=== PATIENT | male | born 1990 | race African-American/Black ===

== ENCOUNTER 2017-03-02 09:58 | Inpatient (IN) | payer OTHER ==
[2017-03-02 10:43] VITALS: BMI 24.7
--- NOTE | 2017-03-02 13:12 | PN ---
[facility] Progress Note Note: Psychiatry Attending's note : Called at [facility] to evaluate this patient. Reason : bizarre behavior and paranoia. Case presented by YESSICA Holguin. Records reviewed by blog writer. Patient is interviewed. History as follows : 26 y/o AA male self-referred to [facility]. Issue : request for detox treatment. Admits to alcohol,cocaine and cannabis dependence. Co-morbidities : nicotine dependence + Schizoaffective Disorder. Maintained on Invega (dose not recalled by patient). Past history of psychiatric hospitalizations.Known to [facility]. Mr Clark is noted as calm,cooperative and appropriate.Conversant. Cognitively intact.Coherent and goal-directed.Decent level of personal hygiene. Patient admits to a recent exchange of words with a peer in the waiting area. " He was gazing at me.I did not feel comfortable and I made it known to the staff." No escalation.Mr Clark insists that his main purpose is to get detox treatment. " I am not looking for trouble.I will get staff's attention if any problem." Patient denies hallucinations.No evidence of acute psychosis. No suicidal or homicidal ideation,intent or plan. Being suspicious could be a chronic feature of patient's personality profile. Unremarkable mental status at time of this examination.
--- NOTE | 2017-03-02 13:48 | HP ---
CIWA Score - CIWA Score Nausea/Vomitin-No Nausea/No Vomiting Muscle Tremors: 4-Moderate,w/Arms Extend Anxiety: 5 Agitation: 4-Moderately Restless Paroxysmal Sweats: No Perspiration Orientation: 0-Oriented Tacttile Disturbances: 3-Moderate Itch/Numb/Burn Auditory Disturbances: 0-None Visual Disturbances: 0-None Headache: 0-None Present CIWA-Ar Total Score: 16 Admission ROS BHS - HPI Chief Complaint: WITHDRAWAL SX Allergies/Adverse Reactions: Allergies Allergy/AdvReac Type Severity Reaction Status Date / Time No Known Drug Allergies Allergy Verified 03/02/17 11:18 seafood Allergy Severe Itching Uncoded 03/02/17 11:19 History of Present Illness: 26 Y/O AA/MALE WITH A HX OF ALCOHOL,COCAINE AND MARIJUANA DEPENDENCE SEEKING DETOX TX. PT STATES " I CAME BY MYSELF AND I WANT TO GET BETTER'. Exam Limitations: No Limitations - Ebola screening Have you traveled outside of the country in the last 21 days: No Have you had contact with anyone from an Ebola affected area: No Have you been sick,other than usual withdrawal symptoms: No Do you have a fever: No - Review of Systems Constitutional: Loss of Appetite, Changes in sleep, Unintentional Wgt. Loss EENT: reports: Dental Problems (CAVITIES) Respiratory: reports: Cough Cardiac: reports: No Symptoms Reported GI: reports: Poor Appetite, Poor Fluid Intake : reports: No Symptoms Reported Musculoskeletal: reports: Back Pain, Muscle Pain Integumentary: reports: No Symptoms Reported Neuro: reports: Unsteady Gait (DUE TO ALCOHOL INTOXICATION) Endocrine: reports: No Symptoms Reported Hematology: reports: Anemia Psychiatric: reports: Orientated x3, Anxious, Depressed Other Systems: Reviewed and Negative Patient History - Patient Medical History Hx Anemia: No Hx Asthma: No Hx Chronic Obstructive Pulmonary Disease (COPD): No Hx Cancer: No Hx Cardiac Disorders: No Hx Congestive Heart Failure: No Hx Hypertension: No Hx Hypercholesterolemia: No Hx Pacemaker: No HX Cerebrovascular Accident: No Hx Seizures: No Hx Dementia: No Hx Diabetes: No Hx Gastrointestinal Disorders: No Hx Liver Disease: No Hx Genitourinary Disorders: No Hx Sexually Transmitted Disorders: No (DNIES) Hx Renal Disease (ESRD): No Hx Thyroid Disease: No Hx Human Immunodeficiency Virus (HIV): No (NEGATIVE HX) Hx Hepatitis C: No Hx Depression: Yes (ON INVEGA) Hx Suicide Attempt: No Hx Bipolar Disorder: Yes Hx Schizophrenia: No - Patient Surgical History Past Surgical History: Yes Hx Neurologic Surgery: No Hx Cataract Extraction: No Hx Cardiac Surgery: No Hx Lung Surgery: No Hx Breast Surgery: No Hx Breast Biopsy: No Hx Abdominal Surgery: No Hx Appendectomy: No Hx Cholecystectomy: No Hx Genitourinary Surgery: No Hx Orthopedic Surgery: Yes (fx, right hand) Anesthesia Reaction: No - PPD History Previous Implant?: Yes Documented Results: Negative w/proof Implanted On Prior [facility] Admission?: Yes Date: 05/19/14 PPD to be Administered?: Yes - Reproductive History Patient is a Female of Child Bearing Age (11 -55 yrs old): No (MALE) - Smoking Cessation Smoking history: Current every day smoker Have you smoked in the past 12 months: Yes Aproximately how many cigarettes per day: 3 Hx Chewing Tobacco Use: No Initiated information on smoking cessation: Yes 'Breaking Loose' booklet given: 03/02/17 - Substance & Tx. History Hx Alcohol Use: Yes (BEER) Hx Substance Use: Yes (CRACK/BEER) Substance Use Type: Alcohol, Cocaine, Marijuana Hx Substance Use Treatment: Yes - Substances Abused Crack Route: Smoking Frequency: Daily Amount used: $50 Age of first use: 22 Date of Last Use: 03/01/17 Alcohol-beer Route: Oral Frequency: Daily Amount used: 2-6 pks. Age of first use: 15 Date of Last Use: 03/01/17 Marijuana Route: Smoking Frequency: 1-2 times per week Amount used: $10 Age of first use: 14 Date of Last Use: 03/01/17 Family Disease History - Family Disease History Family History: Denies Admission Physical Exam S - Vital Signs Vital Signs: Vital Signs - 24 hr 03/02/17 10:42 Temperature 98.2 F Pulse Rate 85 Respiratory 20 Rate Blood Pressure 142/88 - Physical General Appearance: Yes: Moderate Distress, Irritable, Anxious HEENTM: Yes: EOMI, Normocephalic, BLAKE, Pharynx Normal Respiratory: Yes: Chest Non-Tender, Lungs Clear, Normal Breath Sounds, No Respiratory Distress Neck: Yes: No masses,lesions,Nodules, Supple, Trachea in good position Breast: Yes: Breast Exam Deferred Cardiology: Yes: Regular Rhythm, Regular Rate, S1, S2 Abdominal: Yes: Normal Bowel Sounds, Non Tender, Flat Back: Yes: Within Normal Limits Musculoskeletal: Yes: full range of Motion, Gait Steady Extremities: Yes: Normal Range of Motion, Non-Tender Neurological: Yes: pediatric physical therapy assistant II-XII NML intact, Fully Oriented, Alert Integumentary: Yes: Dry, Warm Lymphatic: Yes: Within Normal Limits - Diagnostic (1) Alcohol dependence with uncomplicated withdrawal Current Visit: Yes Status: Acute (2) Cocaine dependence, uncomplicated Current Visit: Yes Status: Acute (3) Cannabis dependence, uncomplicated Current Visit: Yes Status: Acute (4) History of depression Current Visit: Yes Status: Chronic Cleared for Admission S - Detox or Rehab Detox Regimen/Protocol: Librium S Breath Alcohol Content Breath Alcohol Content: 0 Urine Drug Screen - Results Drug Screen Negative: No Urine Drug Screen Results: THC-Marijuana, SARAHY-Cocaine
[2017-03-02] MEDS ORDERED: ACETAMINOPHEN 325 MG TABLET (FP) PO PRN (14:07)
[2017-03-02] MEDS ORDERED: LOPERAMIDE HCL 2 MG CAPSULE PO PRN (14:07)
[2017-03-02] MEDS ORDERED: IBUPROFEN 400 MG TABLET (FP) PO PRN (14:07)
[2017-03-02] MEDS ORDERED: chlordiazePOXIDE HCL 25 MG CAPSULE PO PRN (14:07)
[2017-03-02] MEDS ORDERED: MAGNESIUM HYDROX 2400MG/30ML ORAL SUSPENSION 30 ML CUP PO PRN (14:07)
[2017-03-02] MEDS ORDERED: P-EPHED 60MG/TRIPROLIDI 2.5MG TABLET PO PRN (14:07)
[2017-03-02] MEDS ORDERED: NICOTINE POLACRILEX 2 MG GUM BC PRN (14:07)
[2017-03-02] MEDS ORDERED: MAG HYDROX/AL HYDROX/SIMETH 30 ML UNIT-DOSE CUP PO PRN (14:07)
[2017-03-02] MEDS ORDERED: guaiFENesin/D-METHORPHAN HB 10 ML UNIT-DOSE CUPS PO PRN (14:07)
[2017-03-02] MEDS ORDERED: MAGNESIUM CITRATE 300 ML BOTTLE PO PRN (14:07)
[2017-03-02] MEDS ORDERED: MENTHOL/PHENOL 1 EACH UD MM PRN (14:07)
[2017-03-02] MEDS ORDERED: NICOTINE 14 MG/24 HOURS TOPICAL PATCH TD SCH (14:15)
[2017-03-02] MEDS ORDERED: chlordiazePOXIDE HCL 25 MG CAPSULE PO ONE (15:30)
[2017-03-02] MEDS ORDERED: chlordiazePOXIDE HCL 25 MG CAPSULE PO SCH (17:00)
[2017-03-02 17:35] VITALS: BP 130/80; PULSE 83; TEMP 99.1
--- NOTE | 2017-03-02 19:43 | PN ---
[facility] Progress Note Note: 26 years old male came to [facility] for alcohol detox, upon arrival to the unit, expose his private part to counselor, pull coffee on floor and to the security staff, aggressive toward peers and staff, uncontrollable behavior, patient transferred to [facility] for psychiatric evaluation.
[2017-03-02] MEDS ORDERED: THIAMINE HCL 100 MG TABLET (FP) PO SCH (22:00)
[2017-03-02 22:32] LABS: MCH 30.3 pg (25.7-33.7); MCHC 34.8 g/dl (32.0-35.9); MEAN CELL VOLUME 87.2 fl (80-96); MEAN PLT VOLUME 9.3 fl (7.5-11.1); PLATELET COUNT 275 K/MM3 (134-434); RDW 13.7 % (11.9-15.9); WHITE BLOOD COUNT 8.9 K/mm3 (4.0-10.0)
[2017-03-02 22:40] LABS: ALBUMIN 4.4 g/dl (3.4-5.0); ANION GAP 9 (8-16); CALCIUM 9.2 mg/dL (8.5-10.1); CO2 26 mmol/L (21-32); GLUCOSE,RANDOM 84 mg/dL (74-106)
[2017-03-02 22:44] LABS: ALK PHOS 72 U/L (45-117); BILIRUBIN,TOTAL 0.8 mg/dL (0.2-1.0); SGOT/AST 12 U/L (15-37); SGPT/ALT 15 U/L (12-78); TOT PROT 7.7 g/dl (6.4-8.2)
[2017-03-02 23:05] LABS: URINE APPEARANCE CLEAR; URINE BILIRUBIN NEGATIVE (NEGATIVE); URINE BLOOD NEGATIVE (NEGATIVE); URINE COLOR YELLOW; URINE GLUCOSE (UA) NEGATIVE (NEGATIVE); URINE KETONE NEGATIVE (NEGATIVE); URINE NITRITE NEGATIVE (NEGATIVE); URINE PROTEIN NEGATIVE (NEGATIVE)
[2017-03-03 02:49] LABS: HIV 1 & 2 AB NEGATIVE; HIV 1 AGp24 NEGATIVE
[2017-03-03] MEDS ORDERED: PRENATAL VITAMINS W/ FOLIC ACID TABLET (FP) PO SCH (10:00)
[2017-03-03 11:51] LABS: URINE LEUK ESTERASE Negative (NEGATIVE)
[2017-03-03] MEDS ORDERED: FLU VACCINE QUAD 60 MCG/0.5 ML (MDV 17-18) IM ONE (12:00)
--- NOTE | 2017-03-03 13:08 | EKG ---
Test Reason : Blood Pressure : / mmHG Vent. Rate : 076 BPM Atrial Rate : 076 BPM P-R Int : 146 ms QRS Dur : 092 ms QT Int : 364 ms P-R-T Axes : 036 069 065 degrees QTc Int : 409 ms NORMAL SINUS RHYTHM MINIMAL VOLTAGE CRITERIA FOR LVH, MAY BE NORMAL VARIANT BORDERLINE ECG NO PREVIOUS ECGS AVAILABLE Confirmed by WALT WILSON MD ([id number]) on 03/03/2017 1:08:06 PM Referred By: Confirmed By:WALT WILSON MD
[2017-03-03] MEDS ORDERED: chlordiazePOXIDE HCL 25 MG CAPSULE PO SCH (17:00)
[2017-03-04] MEDS ORDERED: chlordiazePOXIDE 5 MG CAPSULE PO SCH (17:00)
[2017-03-05] MEDS ORDERED: chlordiazePOXIDE HCL 10 MG CAPSULE PO SCH (17:00)
== END 2017-03-02 17:22 | DRG 897 ==
LOC: YASAS 09:58 → Y3N 15:07
PROVIDERS: ADMIT Internal Medicine; ATTEND Internal Medicine
PROC: HZ2ZZZZ Detoxification Services for Substance Abuse Treatment (ICD-10-PCS; principal; 2017-03-02)
DX: F19.230 Other psychoactive substance dependence with withdrawal, uncomplicated (principal); F14.20 Cocaine dependence, uncomplicated; F10.230 Alcohol dependence with withdrawal, uncomplicated; F12.20 Cannabis dependence, uncomplicated; F17.210 Nicotine dependence, cigarettes, uncomplicated; F91.8 Other conduct disorders; Z91.013 Allergy to seafood
CPT/HCPCS: 36415; 80053; 81003; 85027; 86593; 87389; 93005; 93010

== ENCOUNTER 2018-09-26 12:24 | Inpatient (IN) | payer OTHER ==
[2018-09-26 15:09] VITALS: BMI 28.7
--- NOTE | 2018-09-26 16:00 | HP ---
CIWA Score Nausea/Vomitin-Mild Nausea/No Vomiting Muscle Tremors: 2 Anxiety: 2 Agitation: 2 Paroxysmal Sweats: 2 Orientation: 0-Oriented Tacttile Disturbances: 1-Very Mild Itch/Numbness Auditory Disturbances: 1-Very Mild Visual Disturbances: 1-Very Mild Sensitivity Headache: 0-None Present CIWA-Ar Total Score: 12 - Admission Criteria OASAS Guidelines: Admission for Medically Managed Detox: Requires at least one of the followin. CIWA greater than 12 2. Seizures within the past 24 hours 3. Delirium tremens within the past 24 hours 4. Hallucinations within the past 24 hours 5. Acute intervention needed for co occurring medical disorder 6. Acute intervention needed for co occurring psychiatric disorder 7. Severe withdrawal that cannot be handled at a lower level of care (continued vomiting, continued diarrhea, abnormal vital signs) requiring intravenous medication and/or fluids 8. Admission ROS S - [facility] Chief Complaint: Withdrawal symptoms Allergies/Adverse Reactions: Allergies Allergy/AdvReac Type Severity Reaction Status Date / Time fish derived Allergy Severe Itching Verified 09/26/18 15:03 shellfish derived Allergy Severe Itching Verified 09/26/18 15:03 No Known Drug Allergies Allergy Verified 09/26/18 15:03 seafood Allergy Severe Itching Uncoded 09/26/18 15:03 History of Present Illness: 28 y.o. man with an extensive history of alcohol dependence is here seeking detox. He reports he was at [facility] approximately 3 weeks but left AMA. Longest period of sobriety has been 3 years but relapsed in 2013. - Ebola screening Have you traveled outside of the country in the last 21 days: No Have you had contact with anyone from an Ebola affected area: No Do you have a fever: No - Review of Systems Constitutional: Chills, Loss of Appetite, Unintentional Wgt. Loss EENT: reports: No Symptoms Reported Respiratory: reports: No Symptoms reported Cardiac: reports: No Symptoms Reported GI: reports: No Symptoms Reported : reports: No Symptoms Reported Musculoskeletal: reports: Back Pain Integumentary: reports: No Symptoms Reported Neuro: reports: No Symptoms reported, Seizure (H/o syncope) Endocrine: reports: No Symptoms Reported Hematology: reports: No Symptoms Reported Psychiatric: reports: Orientated x3 Other Systems: Reviewed and Negative Patient History - Patient Medical History Hx Anemia: No Hx Asthma: No Hx Chronic Obstructive Pulmonary Disease (COPD): No Hx Cancer: No Hx Cardiac Disorders: No Hx Congestive Heart Failure: No Hx Hypertension: No Hx Hypercholesterolemia: No Hx Pacemaker: No HX Cerebrovascular Accident: No Hx Seizures: No Hx Dementia: No Hx Diabetes: No Hx Gastrointestinal Disorders: No Hx Liver Disease: No Hx Genitourinary Disorders: No Hx Sexually Transmitted Disorders: No (Denies ) Hx Renal Disease (ESRD): No Hx Thyroid Disease: No Hx Human Immunodeficiency Virus (HIV): No (NEGATIVE HX) Hx Hepatitis C: No Hx Depression: Yes (ON INVEGA) Hx Suicide Attempt: No Hx Bipolar Disorder: Yes Hx Schizophrenia: No - Patient Surgical History Past Surgical History: Yes Hx Neurologic Surgery: No Hx Cataract Extraction: No Hx Cardiac Surgery: No Hx Lung Surgery: No Hx Breast Surgery: No Hx Breast Biopsy: No Hx Abdominal Surgery: No Hx Appendectomy: No Hx Cholecystectomy: No Hx Genitourinary Surgery: No Hx Section: No Hx Orthopedic Surgery: Yes (fx, right hand) Anesthesia Reaction: No - PPD History Previous Implant?: Yes Documented Results: Negative w/o proof Date: 05/19/14 PPD to be Administered?: Yes - Reproductive History Patient is a Female of Child Bearing Age (11 -55 yrs old): No - Smoking Cessation Smoking history: Current every day smoker Have you smoked in the past 12 months: Yes Aproximately how many cigarettes per day: 3 Hx Chewing Tobacco Use: No Initiated information on smoking cessation: Yes 'Breaking Loose' booklet given: 09/26/18 - Substance & Tx. History Hx Alcohol Use: Yes Hx Substance Use: Yes Substance Use Type: Alcohol, Cocaine, Marijuana Hx Substance Use Treatment: Yes (Detox [address] [facility] ) - Substances abused Alcohol Substance route: Oral Frequency: Daily Amount used: 6/6packs beer Age of first use: 14 Date of last use: 09/25/18 Marijuana/Hashish Substance route: Smoking Frequency: Daily Amount used: 5 blunts Age of first use: 13 Date of last use: 09/25/18 Crack Substance route: Smoking Frequency: Daily Amount used: $40 Age of first use: 23 Date of last use: 09/25/18 Family Disease History - Family Disease History Family History: Denies Admission Physical Exam BHS - Vital Signs Vital Signs: Vital Signs - 24 hr 09/26/18 14:59 Temperature 97.1 F L Pulse Rate 53 L Respiratory 16 Rate Blood Pressure 104/63 - Physical General Appearance: Yes: No Apparent Distress HEENTM: Yes: Hearing grossly Normal, Normocephalic, Normal Voice Respiratory: Yes: Lungs Clear, Normal Breath Sounds, No Respiratory Distress, No Accessory Muscle Use Neck: Yes: No masses,lesions,Nodules Breast: Yes: Breast Exam Deferred Cardiology: Yes: Regular Rhythm, Bradycardia Abdominal: Yes: Normal Bowel Sounds, Non Tender, Flat Genitourinary: Yes: Other (No complaints reported) Back: Yes: Normal Inspection Musculoskeletal: Yes: full range of Motion, Gait Steady, Pelvis Stable Extremities: Yes: Normal Capillary Refill, Normal Inspection, Normal Range of Motion, Non-Tender Neurological: Yes: Fully Oriented, Alert, Normal Mood/Affect, Normal Response Integumentary: Yes: Normal Color, Dry, Warm Lymphatic: Yes: Within Normal Limits - Diagnostic (1) Nicotine dependence Current Visit: Yes Status: Acute (2) Alcohol dependence with uncomplicated withdrawal Current Visit: Yes Status: Chronic (3) Cannabis dependence, uncomplicated Current Visit: Yes Status: Chronic (4) Cocaine dependence, uncomplicated Current Visit: Yes Status: Chronic Cleared for Admission S - Detox or Rehab [facility] Level of Care: Medically Managed Detox Regimen/Protocol: Librium Breathalyzer - Breathalyzer Breathalyzer: 0 Urine Drug Screen - Test Device Lot number: [id number] Expiration date: 06/01/20 - Control Is test valid?: Yes - Results Drug screen NEGATIVE: No Urine drug screen results: THC-Marijuana, SARAHY-Cocaine, BZO-Benzodiazepines Inpatient Rehab Admission - Rehab Decision to Admit Inpatient rehab admission?: No
[2018-09-26] MEDS ORDERED: MAG HYDROX/AL HYDROX/SIMETH 30 ML UNIT-DOSE CUP PO PRN (16:02)
[2018-09-26] MEDS ORDERED: MAGNESIUM HYDROX 2400MG/30ML ORAL SUSPENSION 30 ML CUP PO PRN (16:02)
[2018-09-26] MEDS ORDERED: BISMUTH SUBSALICYLATE 524 MG/30 ML UD PO PRN (16:02)
[2018-09-26] MEDS ORDERED: chlordiazePOXIDE HCL 10 MG CAPSULE PO PRN (16:02)
[2018-09-26] MEDS ORDERED: hydrOXYzine PAMOATE 25 MG CAPSULE (FP) PO PRN (16:02)
[2018-09-26] MEDS ORDERED: MENTHOL/PHENOL 1 EACH UD MM PRN (16:02)
[2018-09-26] MEDS ORDERED: METHOCARBAMOL 500 MG TABLET PO PRN (16:02)
[2018-09-26] MEDS ORDERED: ACETAMINOPHEN 325 MG TABLET (FP) PO PRN ×2 (16:02)
[2018-09-26] MEDS ORDERED: MAGNESIUM CITRATE 300 ML BOTTLE PO PRN (16:02)
[2018-09-26] MEDS: chlordiazePOXIDE HCL 25 MG CAPSULE PO SCH (22:12)
[2018-09-26] MEDS: THIAMINE HCL 100 MG TABLET (FP) PO SCH (22:13)
[2018-09-26] MEDS: MELATONIN 5 MG TABLETS PO PRN (22:13)
[2018-09-27] MEDS: chlordiazePOXIDE HCL 25 MG CAPSULE PO SCH ×2 (06:25→13:41)
--- NOTE | 2018-09-27 08:05 | EKG ---
Test Reason : Blood Pressure : / mmHG Vent. Rate : 045 BPM Atrial Rate : 045 BPM P-R Int : 174 ms QRS Dur : 100 ms QT Int : 424 ms P-R-T Axes : 065 067 052 degrees QTc Int : 366 ms SINUS BRADYCARDIA MINIMAL VOLTAGE CRITERIA FOR LVH, MAY BE NORMAL VARIANT EARLY REPOLARIZATION BORDERLINE ECG WHEN COMPARED WITH ECG OF 02-MAR-2017 18:27, VENT. RATE HAS DECREASED BY 31 BPM T WAVE AMPLITUDE HAS INCREASED IN ANTERIOR LEADS Confirmed by MICHELLE SHAIKH, NICOLASA ([id number]) on 09/27/2018 8:04:37 AM Referred By: Confirmed By:NICOLASA MARTINEZ MD
[2018-09-27] MEDS: PRENATAL VITAMINS W/ FOLIC ACID TABLET (FP) PO SCH (09:33)
[2018-09-27 10:00] LABS: HEMATOCRIT 39.4 % (35.4-49); HEMOGLOBIN 13.6 GM/dL (11.7-16.9); MCH 29.9 pg (25.7-33.7); MCHC 34.5 g/dl (32.0-35.9); MEAN CELL VOLUME 86.7 fl (80-96); MEAN PLT VOLUME 8.7 fl (7.5-11.1); PLATELET COUNT 247 K/MM3 (134-434); RBC 4.54 M/mm3 (4.00-5.60); RDW 14.6 % (11.9-15.9); WHITE BLOOD COUNT 4.6 K/mm3 (4.0-10.0)
[2018-09-27 10:07] LABS: ALBUMIN 3.6 g/dl (3.4-5.0); BILIRUBIN,TOTAL 0.7 mg/dL (0.2-1); BLOOD UREA NITROGEN 10.2 mg/dL (7-18); CALCIUM 9.2 mg/dL (8.5-10.1); CREATININE 0.9 mg/dL (0.55-1.3); POTASSIUM 4.6 mmol/L (3.5-5.1); TOT PROT 6.8 g/dl (6.4-8.2)
--- NOTE | 2018-09-27 15:24 | PN ---
S CIWA - CIWA Score Nausea/Vomitin-No Nausea/No Vomiting Muscle Tremors: None Anxiety: 3 Agitation: 2 Paroxysmal Sweats: 3 Orientation: 0-Oriented Tacttile Disturbances: 2-Mild Itch/Numbness/Burn Auditory Disturbances: 1-Very Mild Visual Disturbances: 2-Mild Sensitivity Headache: 0-None Present CIWA-Ar Total Score: 13 S Progress Note (SOAP) Subjective: Anxious, Sweating, Body Aches. Objective: PATIENT A & O X 3, OBSERVED AMBULATING ON UNIT UNASSISTED. IN NO ACUTE DISTRESS. 09/27/18 15:25 Vital Signs Temperature 97.0 F L 09/27/18 13:48 Pulse Rate 60 09/27/18 13:48 Respiratory Rate 18 09/27/18 13:48 Blood Pressure 104/65 09/27/18 13:48 O2 Sat by Pulse Oximetry (%) Laboratory Tests 09/27/18 09/27/18 09/27/18 07:00 07:00 07:00 WBC 4.6 RBC 4.54 Hgb 13.6 Hct 39.4 MCV 86.7 MCH 29.9 MCHC 34.5 RDW 14.6 Plt Count 247 MPV 8.7 Sodium 139 Potassium 4.6 Chloride 106 Carbon Dioxide 28 Anion Gap 5 L BUN 10.2 Creatinine 0.9 Est GFR (CKD-EPI)AfAm 132.37 Est GFR (CKD-EPI)NonAf 114.21 Random Glucose 76 Calcium 9.2 Total Bilirubin 0.7 AST 13 L ALT 19 Alkaline Phosphatase 53 Total Protein 6.8 Albumin 3.6 RPR Titer Nonreactive HIV 1&2 Antibody Screen HIV P24 Antigen 09/27/18 07:00 WBC RBC Hgb Hct MCV MCH MCHC RDW Plt Count MPV Sodium Potassium Chloride Carbon Dioxide Anion Gap BUN Creatinine Est GFR (CKD-EPI)AfAm Est GFR (CKD-EPI)NonAf Random Glucose Calcium Total Bilirubin AST ALT Alkaline Phosphatase Total Protein Albumin RPR Titer HIV 1&2 Antibody Screen Negative HIV P24 Antigen Negative LABS NOTED. HCV AB RESULT PENDING. 09/27/18 15:26 Assessment: 09/27/18 15:25 WITHDRAWAL SYMPTOMS. Plan: CONTINUE DETOX.
[2018-09-27] MEDS: chlordiazePOXIDE 5 MG CAPSULE PO SCH (21:21)
[2018-09-27] MEDS: THIAMINE HCL 100 MG TABLET (FP) PO SCH (21:21)
[2018-09-27] MEDS: IBUPROFEN 600 MG TABLET (FP) PO PRN (21:22)
[2018-09-27] MEDS: MELATONIN 5 MG TABLETS PO PRN (21:22)
[2018-09-28] MEDS: chlordiazePOXIDE 5 MG CAPSULE PO SCH ×2 (06:14→12:36)
[2018-09-28] MEDS: PRENATAL VITAMINS W/ FOLIC ACID TABLET (FP) PO SCH (11:00)
--- NOTE | 2018-09-28 14:03 | PN ---
S CIWA - CIWA Score Nausea/Vomitin Muscle Tremors: 2 Anxiety: 2 Agitation: 2 Paroxysmal Sweats: 1-Minimal Palms Moist Orientation: 0-Oriented Tacttile Disturbances: 1-Very Mild Itch/Numbness Auditory Disturbances: 1-Very Mild Visual Disturbances: 0-None Headache: 2-Mild CIWA-Ar Total Score: 13 S Progress Note (SOAP) Subjective: alert,irritable,anxious,interrupted sleep,tremor Objective: 09/28/18 13:59 Vital Signs Temperature 96.5 F L 09/28/18 13:05 Pulse Rate 61 09/28/18 13:05 Respiratory Rate 18 09/28/18 13:05 Blood Pressure 107/66 09/28/18 13:05 O2 Sat by Pulse Oximetry (%) 09/28/18 14:02 Laboratory Last Values WBC 4.6 K/mm3 (4.0-10.0) 09/27/18 07:00 RBC 4.54 M/mm3 (4.00-5.60) 09/27/18 07:00 Hgb 13.6 GM/dL (11.7-16.9) 09/27/18 07:00 Hct 39.4 % (35.4-49) 09/27/18 07:00 MCV 86.7 fl (80-96) 09/27/18 07:00 MCH 29.9 pg (25.7-33.7) 09/27/18 07:00 MCHC 34.5 g/dl (32.0-35.9) 09/27/18 07:00 RDW 14.6 % (11.9-15.9) 09/27/18 07:00 Plt Count 247 K/MM3 (134-434) 09/27/18 07:00 MPV 8.7 fl (7.5-11.1) 09/27/18 07:00 Sodium 139 mmol/L (136-145) 09/27/18 07:00 Potassium 4.6 mmol/L (3.5-5.1) 09/27/18 07:00 Chloride 106 mmol/L (98-107) 09/27/18 07:00 Carbon Dioxide 28 mmol/L (21-32) 09/27/18 07:00 Anion Gap 5 MMOL/L (8-16) L 09/27/18 07:00 BUN 10.2 mg/dL (7-18) 09/27/18 07:00 Creatinine 0.9 mg/dL (0.55-1.3) 09/27/18 07:00 Est GFR (CKD-EPI)AfAm 132.37 09/27/18 07:00 Est GFR (CKD-EPI)NonAf 114.21 09/27/18 07:00 Random Glucose 76 mg/dL (74-106) 09/27/18 07:00 Calcium 9.2 mg/dL (8.5-10.1) 09/27/18 07:00 Total Bilirubin 0.7 mg/dL (0.2-1) 09/27/18 07:00 AST 13 U/L (15-37) L 09/27/18 07:00 ALT 19 U/L (13-61) 09/27/18 07:00 Alkaline Phosphatase 53 U/L (45-117) 09/27/18 07:00 Total Protein 6.8 g/dl (6.4-8.2) 09/27/18 07:00 Albumin 3.6 g/dl (3.4-5.0) 09/27/18 07:00 RPR Titer Nonreactive (NONREACTIVE) 09/27/18 07:00 Hep C Ab Diagnostic <0.1 s/co ratio (0.0-0.9) 09/27/18 07:00 HIV 1&2 Antibody Screen Negative 09/27/18 07:00 HIV P24 Antigen Negative 09/27/18 07:00 Assessment: 09/28/18 14:03 withdrawal symptom Plan: continue detox
[2018-09-28] MEDS ORDERED: chlordiazePOXIDE HCL 10 MG CAPSULE PO PRN (21:00)
[2018-09-28] MEDS: THIAMINE HCL 100 MG TABLET (FP) PO SCH (22:02)
[2018-09-28] MEDS: chlordiazePOXIDE HCL 10 MG CAPSULE PO SCH (22:02)
[2018-09-28] MEDS: MELATONIN 5 MG TABLETS PO PRN (22:03)
[2018-09-28] MEDS: IBUPROFEN 600 MG TABLET (FP) PO PRN (22:03)
[2018-09-29] MEDS: chlordiazePOXIDE HCL 10 MG CAPSULE PO SCH ×2 (06:06→15:15)
--- NOTE | 2018-09-29 09:27 | PN ---
S CIWA - CIWA Score Nausea/Vomitin-No Nausea/No Vomiting Muscle Tremors: None Anxiety: 1-Mildly Anxious Agitation: 1-Slight > Activity Paroxysmal Sweats: No Perspiration Orientation: 0-Oriented Tacttile Disturbances: 0-None Auditory Disturbances: 0-None Visual Disturbances: 0-None Headache: 1-Very Mild CIWA-Ar Total Score: 3 BHS Progress Note (SOAP) Subjective: alert,no complaint Objective: 09/29/18 09:26 Vital Signs Temperature 97.4 F L 09/29/18 06:48 Pulse Rate 51 L 09/29/18 06:48 Respiratory Rate 18 09/29/18 06:48 Blood Pressure 102/57 L 09/29/18 06:48 O2 Sat by Pulse Oximetry (%) Assessment: 09/29/18 09:26 detox completed,no withdrawal symptom Plan: [id number] today,follow up with [facility] as arrangement
--- NOTE | 2018-09-29 09:29 | DS ---
[facility] Detox Discharge Summary Admission Date: 09/26/18 Discharge Date: 09/29/18 - History Present History: Alcohol Dependence, Cannabis Dependence, Cocaine Dependence Additional Comments: follow up with [facility] as arrangement Pertinent Past History: nicotine dependence - Physical Exam Results Vital Signs: Vital Signs Temperature 97.4 F L 09/29/18 06:48 Pulse Rate 51 L 09/29/18 06:48 Respiratory Rate 18 09/29/18 06:48 Blood Pressure 102/57 L 09/29/18 06:48 O2 Sat by Pulse Oximetry (%) Pertinent Admission Physical Exam Findings: withdrawal signs and symptom - Treatment Hospital Course: Detox Protocol Followed, Detoxed Safely, Responded well, Discharged Condition Good, Rehab Referral Accepted Patient has Accepted a Rehab Referral to: [facility] - Medication Discharge Medications: Ambulatory Orders NK [No Known Home Medication] 09/26/18 - AMA Did Patient Leave Against Medical Advice: No
[2018-09-29] MEDS: PRENATAL VITAMINS W/ FOLIC ACID TABLET (FP) PO SCH (10:41)
--- NOTE | 2018-09-29 12:20 | PN ---
S Progress Note Note: patient is stable to be transferred to rehab for further level of care
--- NOTE | 2018-09-29 13:31 | HP ---
PRIYA SHAIKH Rehab Assess/Revision - Vital signs Vital Signs: Vital Signs Period Temp Pulse Resp BP Sys/Shields Pulse Ox Last 24 Hr 96.5 F-98.0 F 48-61 18-18 102-122/57-74 Inpatient Rehab Admission - Rehab Decision to Admit Inpatient rehab admission?: Yes - Initial Determination Are CD services needed?: Yes Free of communicable disease: Yes Not in need of hospitalization: Yes - Rehab Admission Criteria Previous failed treatment: Yes Poor recovery environment: Yes Comorbidities: Yes Lacks judgement: No Patient is meeting Inpatient Rehab admission criteria:: Yes
[2018-09-29] MEDS: MELATONIN 5 MG TABLETS PO PRN (21:29)
[2018-09-29] MEDS: THIAMINE HCL 100 MG TABLET (FP) PO SCH (21:29)
[2018-09-30] MEDS: PRENATAL VITAMINS W/ FOLIC ACID TABLET (FP) PO SCH (09:28)
[2018-09-30] MEDS: MELATONIN 5 MG TABLETS PO PRN (21:38)
[2018-09-30] MEDS: THIAMINE HCL 100 MG TABLET (FP) PO SCH (21:38)
[2018-10-01] MEDS: PRENATAL VITAMINS W/ FOLIC ACID TABLET (FP) PO SCH (10:53)
[2018-10-01] MEDS: THIAMINE HCL 100 MG TABLET (FP) PO SCH (21:55)
[2018-10-01] MEDS: MELATONIN 5 MG TABLETS PO PRN (21:55)
[2018-10-02 06:49] VITALS: BP 130/71; PULSE 62; TEMP 97.7
[2018-10-02] MEDS: PRENATAL VITAMINS W/ FOLIC ACID TABLET (FP) PO SCH (10:02)
[2018-10-02] MEDS ORDERED: PT OWN MED DRAWER 7, Y5N ONE (10:40)
[2018-10-02] MEDS: THIAMINE HCL 100 MG TABLET (FP) PO SCH (21:25)
[2018-10-02] MEDS: MELATONIN 5 MG TABLETS PO PRN (21:25)
[2018-10-03] MEDS: PRENATAL VITAMINS W/ FOLIC ACID TABLET (FP) PO SCH (10:17)
--- NOTE | 2018-10-03 12:04 | PN ---
S Progress Note (SOAP) Subjective: Patient states that he is leaving tomorrow AMA. Patient states that he is not prepared to stay and has family issues. Objective: A+O x3, no neurological deficits noted, PERRLA, heart rate regular, lungs clear , abd soft, non-tender, non-distended, +BS. Skin clear. 10/03/18 12:02 CBC, BMP 09/27/18 07:00 09/27/18 07:00 Vital Signs (72 hours) 10/01/18 10/01/18 10/01/18 00:30 03:30 06:50 Temperature 98.0 F Pulse Rate 76 Respiratory 18 18 18 Rate Blood Pressure 152/84 10/02/18 10/02/18 10/02/18 00:30 03:30 06:49 Temperature 97.7 F Pulse Rate 62 Respiratory 18 18 18 Rate Blood Pressure 130/71 10/03/18 10/03/18 00:30 03:30 Temperature Pulse Rate Respiratory 20 18 Rate Blood Pressure 10/03/18 12:02 10/03/18 12:10 10/03/18 12:16 Assessment: Medically stable for discharge Discharge Dx; ETOH dependence Cannabis dependence Cocaine dependence. 10/03/18 12:17 10/03/18 12:17 Plan: Discharge Plan: Patient is leaving AMA. Patient will seek residential treatment on his own and will consult with his counselor to determine the best choices. Patient does not have regular primary care provider. Strongly encouraged to seek on-going medical care. Does not take any prescribed medications while in the community.
== END 2018-10-03 15:09 | disposition left against medical advice (07) | DRG 894 ==
LOC: YASAS 12:24 → Y3N 16:44 → Y3W 09-29 12:35
PROVIDERS: ADMIT Surgery; ATTEND Psychiatry & Neurology Psychiatry
PROC: HZ2ZZZZ Detoxification Services for Substance Abuse Treatment (ICD-10-PCS; principal; 2018-09-26)
PROC: HZ42ZZZ Group Counseling for Substance Abuse Treatment, Cognitive-Behavioral (ICD-10-PCS; 2018-09-29)
DX: F10.230 Alcohol dependence with withdrawal, uncomplicated (principal); F14.20 Cocaine dependence, uncomplicated; F12.20 Cannabis dependence, uncomplicated; F17.210 Nicotine dependence, cigarettes, uncomplicated; R00.1 Bradycardia, unspecified; Z91.013 Allergy to seafood
CPT/HCPCS: 36415; 80053; 85027; 86593; 86803; 87389; 93005; 93010

== ENCOUNTER 2019-04-20 14:00 | Inpatient (IN) | payer OTHER ==
[2019-04-20 17:01] VITALS: BMI 29.6
--- NOTE | 2019-04-20 20:08 | HP ---
"CIWA Score - Admission Criteria [facility]ASAS Guidelines: Admission for Medically Managed Detox: Requires at least one of the followin. CIWA greater than 12 2. Seizures within the past 24 hours 3. Delirium tremens within the past 24 hours 4. Hallucinations within the past 24 hours 5. Acute intervention needed for co occurring medical disorder 6. Acute intervention needed for co occurring psychiatric disorder 7. Severe withdrawal that cannot be handled at a lower level of care (continued vomiting, continued diarrhea, abnormal vital signs) requiring intravenous medication and/or fluids 8. Admitting History and Physical - Smoking History Smoking history: Current every day smoker Have you smoked in the past 12 months: Yes Aproximately how many cigarettes per day: 3 - Alcohol/Substance Use Hx Alcohol Use: Yes Admission ROS S - HPI Chief Complaint: States here for rehab to avoid further relapse. Allergies/Adverse Reactions: Allergies Allergy/AdvReac Type Severity Reaction Status Date / Time fish derived Allergy Severe Itching Verified 04/20/19 16:45 shellfish derived Allergy Severe Itching Verified 04/20/19 16:45 No Known Drug Allergies Allergy Verified 04/20/19 16:45 seafood Allergy Severe Itching Uncoded 04/20/19 16:45 History of Present Illness: 28 yo presents seeking rehab. CIARAN: 0.0 UTox: Neg Hx: Crack/cocaine/Marijuana/Alcohol use - states was detoxed from alcohol and then went to a rehab. Alcohol use began at age 14. Relapsed this week. Currently drinking 1 pint daily x past 3-4 days. Last drink was 04/19/18 in am.. Cocaine use began at age 22. last used 1 month ago. Denies Nicotine use. States stopped Denies hx seizures, overdoses, or blackouts. PMHx: Denies MHHx: Depression/Bipolar. States does not see a MH Provider. States taking MH meds. States gets meds from the emergency room. Denies thoughts of harming self or others. SHx: Domiciled. Unemployed. Denies legal issues. Search Terms: Chase Clark, 1990 Search Date: 04/20/2019 08:08:04 PM The Drug Utilization Report below displays all of the controlled substance prescriptions, if any, that your patient has filled in the last twelve months. The information displayed on this report is compiled from pharmacy submissions to the Department, and accurately reflects the information as submitted by the pharmacies. This report was requested by: Amanda Alas | Reference #: [id number] There are no results for the search terms that you entered. Exam Limitations: No Limitations - Ebola screening Have you traveled outside of the country in the last 21 days: No Have you had contact with anyone from an Ebola affected area: No Have you been sick,other than usual withdrawal symptoms: No Do you have a fever: No - Review of Systems Constitutional: Weight Stable EENT: reports: No Symptoms Reported Respiratory: reports: No Symptoms reported Cardiac: reports: No Symptoms Reported GI: reports: No Symptoms Reported : reports: No Symptoms Reported Musculoskeletal: reports: No Symptoms Reported Integumentary: reports: No Symptoms Reported Neuro: reports: No Symptoms reported Endocrine: reports: No Symptoms Reported Hematology: reports: No Symptoms Reported Psychiatric: reports: Judgement Intact, Orientated x3 Patient History - Patient Medical History Hx Anemia: No Hx Asthma: No Hx Chronic Obstructive Pulmonary Disease (COPD): No Hx Cancer: No Hx Cardiac Disorders: No Hx Congestive Heart Failure: No Hx Hypertension: No Hx Hypercholesterolemia: No Hx Pacemaker: No HX Cerebrovascular Accident: No Hx Seizures: No Hx Dementia: No Hx Diabetes: No Hx Gastrointestinal Disorders: No Hx Liver Disease: No Hx Genitourinary Disorders: No Hx Sexually Transmitted Disorders: No Hx Renal Disease (ESRD): No Hx Thyroid Disease: No Hx Human Immunodeficiency Virus (HIV): No (NEGATIVE HX) Hx Hepatitis C: No Hx Depression: Yes Hx Suicide Attempt: No Hx Bipolar Disorder: Yes Hx Schizophrenia: No - Patient Surgical History Past Surgical History: Yes Hx Neurologic Surgery: No Hx Cataract Extraction: No Hx Cardiac Surgery: No Hx Lung Surgery: No Hx Breast Surgery: No Hx Breast Biopsy: No Hx Abdominal Surgery: No Hx Appendectomy: No Hx Cholecystectomy: No Hx Genitourinary Surgery: No Hx Section: No Hx Orthopedic Surgery: Yes (fx, right hand) Anesthesia Reaction: No - PPD History Previous Implant?: Yes Documented Results: Negative w/proof Implanted On Prior [facility] Admission?: Yes Date: 09/26/18 Results: 0 mm PPD to be Administered?: No - Smoking Cessation Smoking history: Former smoker Have you smoked in the past 12 months: Yes Hx Chewing Tobacco Use: No Initiated information on smoking cessation: Yes 'Breaking Loose' booklet given: 04/20/19 - Substance & Tx. History Hx Alcohol Use: Yes Hx Substance Use: Yes Substance Use Type: Alcohol, Cocaine, Marijuana Hx Substance Use Treatment: Yes (detox, rehab) - Substances abused Alcohol Substance route: Oral Frequency: Daily Amount used: 1 pint of gin Age of first use: 15 Date of last use: 04/19/19 Cocaine Substance route: Smoking Frequency: Daily Amount used: 50 dollars Age of first use: 22 Date of last use: 04/19/19 Marijuana/Hashish Substance route: Smoking Frequency: Daily Amount used: 50 dollars Age of first use: 14 Date of last use: 04/20/[address] [facility] - Vital Signs Vital Signs: Vital Signs - 24 hr 04/20/19 04/20/19 16:44 19:44 Temperature 98.5 F 98.5 F Pulse Rate 74 74 Respiratory 20 20 Rate Blood Pressure 118/69 118/69 - Physical General Appearance: Yes: Nourished HEENTM: Yes: EOMI, Hearing grossly Normal, Normocephalic, Normal Voice, BLAKE Respiratory: Yes: Lungs Clear (Pulse Ox = 97 %), Normal Breath Sounds, No Respiratory Distress Neck: Yes: No masses,lesions,Nodules, Supple Breast: Yes: Breast Exam Deferred Cardiology: Yes: Regular Rhythm, S1, S2, Bradycardia (HR: 58) Abdominal: Yes: Non Tender, Flat, Soft, Increased Bowel Sounds Genitourinary: Yes: Within Normal Limits Back: Yes: Normal Inspection Musculoskeletal: Yes: full range of Motion, Gait Steady Extremities: Yes: Normal Capillary Refill (Peipheral pulses +) Neurological: Yes: back closer II-XII NML intact, Fully Oriented, Alert, Motor Strength 5/5, Other (FLAT AFFECT) Integumentary: Yes: Normal Color, Dry, Warm Lymphatic: Yes: Within Normal Limits - Diagnostic (1) Cannabis dependence in early, early partial, sustained full, or sustained partial remission Current Visit: Yes Status: Acute (2) Cocaine dependence in early, early partial, sustained full, or sustained partial remission Current Visit: Yes Status: Acute (3) Alcohol dependence, in remission Current Visit: Yes Status: Acute Cleared for Admission [facility] - Detox or Rehab Claeared for Rehab Admission: Yes Breathalyzer - Breathalyzer Breathalyzer: 0 Urine Drug Screen - Test Device Lot number: [id number] Expiration date: 11/01/20 - Control Is test valid?: Yes - Results Drug screen NEGATIVE: Yes Urine drug screen results: THC-Marijuana, SARAHY-Cocaine, BZO-Benzodiazepines Inpatient Rehab Admission - Rehab Decision to Admit Inpatient rehab admission?: Yes - Initial Determination Are CD services needed?: Yes Free of communicable disease: Yes Not in need of hospitalization: Yes - Rehab Admission Criteria Previous failed treatment: Yes Poor recovery environment: Yes Comorbidities: Yes Lacks judgement: No Patient is meeting Inpatient Rehab admission criteria:: Yes"
[2019-04-20] MEDS ORDERED: MAGNESIUM HYDROX 2400MG/30ML ORAL SUSPENSION 30 ML CUP PO PRN (20:29)
[2019-04-20] MEDS ORDERED: MENTHOL/PHENOL 1 EACH UD MM PRN (20:29)
[2019-04-20] MEDS ORDERED: MAG HYDROX/AL HYDROX/SIMETH 30 ML UNIT-DOSE CUP PO PRN (20:29)
[2019-04-20] MEDS ORDERED: P-EPHED 60MG/TRIPROLIDI 2.5MG TABLET PO PRN (20:29)
[2019-04-20] MEDS ORDERED: ACETAMINOPHEN 325 MG TABLET (FP) PO PRN (20:29)
[2019-04-20] MEDS ORDERED: MAGNESIUM CITRATE 300 ML BOTTLE PO PRN (20:29)
[2019-04-20] MEDS ORDERED: guaiFENesin 200 MG/10 ML 10 ML UNIT-DOSE CUPS PO PRN (20:29)
[2019-04-20] MEDS ORDERED: LOPERAMIDE HCL 2 MG CAPSULE PO PRN (20:29)
[2019-04-20] MEDS ORDERED: IBUPROFEN 400 MG TABLET (FP) PO PRN (20:29)
[2019-04-20] MEDS ORDERED: MELATONIN 5 MG TABLETS PO PRN (22:00)
[2019-04-20] MEDS: THIAMINE HCL 100 MG TABLET (FP) PO SCH (22:01)
[2019-04-21] MEDS: PRENATAL VITAMINS W/ FOLIC ACID TABLET (FP) PO SCH (10:14)
[2019-04-21 11:36] LABS: HEMATOCRIT 37.9 % (35.4-49); HEMOGLOBIN 13.1 GM/dL (11.7-16.9); MCH 29.8 pg (25.7-33.7); MCHC 34.5 g/dl (32.0-35.9); MEAN CELL VOLUME 86.2 fl (80-96); PLATELET COUNT 225 K/MM3 (134-434); RBC 4.39 M/mm3 (4.00-5.60); RDW 13.9 % (11.9-15.9); WHITE BLOOD COUNT 4.2 K/mm3 (4.0-10.0)
[2019-04-21 11:55] LABS: ALBUMIN 3.7 g/dl (3.4-5.0); BILIRUBIN,TOTAL 0.5 mg/dL (0.2-1); BLOOD UREA NITROGEN 11.8 mg/dL (7-18); CALCIUM 8.8 mg/dL (8.5-10.1); CREATININE 0.9 mg/dL (0.55-1.3); POTASSIUM 4.1 mmol/L (3.5-5.1); TOT PROT 6.8 g/dl (6.4-8.2)
--- NOTE | 2019-04-21 13:16 | EKG ---
Test Reason : Blood Pressure : / mmHG Vent. Rate : 054 BPM Atrial Rate : 054 BPM P-R Int : 160 ms QRS Dur : 084 ms QT Int : 382 ms P-R-T Axes : 049 069 047 degrees QTc Int : 362 ms SINUS BRADYCARDIA OTHERWISE NORMAL ECG WHEN COMPARED WITH ECG OF 26-SEP-2018 16:36, NO SIGNIFICANT CHANGE WAS FOUND Confirmed by WALT WILSON MD ([id number]) on 04/21/2019 1:16:42 PM Referred By: Dami Win Confirmed By:WALT WILSON MD
[2019-04-21] MEDS: THIAMINE HCL 100 MG TABLET (FP) PO SCH (22:03)
[2019-04-22] MEDS: PRENATAL VITAMINS W/ FOLIC ACID TABLET (FP) PO SCH (10:07)
[2019-04-22] MEDS: THIAMINE HCL 100 MG TABLET (FP) PO SCH (21:45)
[2019-04-23] MEDS: PRENATAL VITAMINS W/ FOLIC ACID TABLET (FP) PO SCH (10:14)
--- NOTE | 2019-04-23 11:01 | PN ---
[facility] Progress Note Note: Pt is a 29 y/o male with a hx of CODY-alcohol,cocaine,marijuana admitted through [facility] . As per H/P pt has a hx of Bipolar Disorder(no meds). Pt reports he has no PCP and goes to the ER when needing medical care. Pt is unwilling to have giving clear information about medical management when asked. However, Psych consult has been ordered and Valproic Acid on admission--result low as below. Vital Signs - 24 hr 04/23/19 03:30 Respiratory 18 Rate Laboratory Tests 04/21/19 04/21/19 04/21/19 07:30 07:30 07:30 WBC 4.2 RBC 4.39 Hgb 13.1 Hct 37.9 MCV 86.2 MCH 29.8 MCHC 34.5 RDW 13.9 Plt Count 225 MPV 9.0 Sodium 142 Potassium 4.1 Chloride 110 H Carbon Dioxide 27 Anion Gap 5 L BUN 11.8 Creatinine 0.9 Est GFR (CKD-EPI)AfAm 132.37 Est GFR (CKD-EPI)NonAf 114.21 Random Glucose 81 Calcium 8.8 Total Bilirubin 0.5 AST 13 L ALT 16 Alkaline Phosphatase 60 Total Protein 6.8 Albumin 3.7 Valproic Acid 6.4 L RPR Titer 04/21/19 07:30 WBC RBC Hgb Hct MCV MCH MCHC RDW Plt Count MPV Sodium Potassium Chloride Carbon Dioxide Anion Gap BUN Creatinine Est GFR (CKD-EPI)AfAm Est GFR (CKD-EPI)NonAf Random Glucose Calcium Total Bilirubin AST ALT Alkaline Phosphatase Total Protein Albumin Valproic Acid RPR Titer Nonreactive Alert o x 3 nad oob ambulating with steady gait. A/P new rehab pt Maintain safety labs reviewed with pt pt's inappropriate behavior(confrontational) d/w counselors Ms Luis Antonio Holder and Ms Nakia Ballard as well as Nurses-Kelly Lau and Kelly. D/w psych consult- Buster Ramesh, beading installer and he will see patient. Pt may be teamed with security presence to address behavior and encourage positive behavior to maximize treatment benefit if continues to be a problem. Cont rehab. Addendum:Pt was very argumentative and confrontational when asked if he has a primary care provider. Pt cross- questioning provider stating where do you think I go? Answer me? Pt continued to respond inappropriately to provider nonstop while provider ignored his efforts to escalate argument. Provider explained to patient that this new patient encounter is meant to gather information that we may not have gathered on admission for his medical care and discharge planning. Pt continued to be verbally insulting on the hallways after leaving the room stating "you look raggedy, that's how you look" to this provider while provider was at the nursing station. Pt returned to this provider 's office door again about 15 minutes later while a patient was with provider and states "Oh, you are with a patient". Provider acknowledged to patient that another pt is currently being seen and he walked away. About 2 p.m pt passing the nursing station called out to provider "Miss, Miss... I apologize for how I responded to you. For how I was rude to you". Pt was encouraged that staff is here to help him receive the help he needs and to assist us to help him achieve his goals. Pt was seen by Mr Ramesh, beading installer and his psych meds reordered(see psych notes).
--- NOTE | 2019-04-23 14:26 | CONSULT ---
[facility] Psychiatric Consult - Data Date of interview: 04/23/19 Admission source: [facility] Identifying data: Patient is a 29 year old single male, without children, unemployed, homeless, and is supported by [facility]. This is one of multiple admissions for patient. Patient admitted to for alcohol, cocaine and marijuana dependence. Substance Abuse History: Smoking Cessation. Smoking history: Former smoker. Have you smoked in the past 12 months: Yes. Hx Chewing Tobacco Use: No. Initiated information on smoking cessation: Yes. 'Breaking Loose' booklet given : 04/20/19. - Substance & Tx. History. Hx Alcohol Use: Yes. Hx Substance Use : Yes. Substance Use Type: Alcohol, Cocaine, Marijuana. Hx Substance Use Treatment: Yes (detox, rehab). - Substances abused. Alcohol. Substance route: Oral. Frequency: Daily. Amount used: 1 pint of gin. Age of first use: 15. Date of last use: 04/19/19. Cocaine. Substance route: Smoking. Frequency: Daily. Amount used: 50 dollars. Age of first use: 22. Date of last use: 04/19/19. Marijuana/Hashish. Substance route: Smoking. Frequency : Daily. Amount used: 50 dollars. Age of first use: 14. Date of last use: Medical History: Fracture right hand surgery. Psychiatric History: Patient's first psychiatric contact was as a 15 year old after he was admitted to [facility] for bizarre behavior secondary to marijuana use. States that he was diagnosed with a psychotic disorder and prescribed psychotropic medication. Mr. Clark reports additional hospitalizations at [facility], and [facility]. Diagnosis of Bipolar disorder. Mr. Clark most recent outpatient care was provided by [facility] in February of 2019 and is prescribed Risperdal 3mg HS + Cogentin 1mg BID + Depakote 500mg BID. States that he has not taken his medications since admission to facility. Patient is currently followed by a psychiatric provider. States that he receives medications refills from other rehab facilties. Before admission to current facility patient was residing at [facility] but states he was "kicked out" after a verbal dispute. Patient denies history of suicide attempt. At present patient denies history of auditory/visual hallucinations. No manic/depressive or psychotic symptoms noted. Physical/Sexual Abuse/Trauma History: denies. Mental Status Exam - Mental Status Exam Alert and Oriented to: Time, Place, Person Cognitive Function: Good Patient Appearance: Well Groomed Mood: Euthymic Affect: Appropriate Patient Behavior: Appropriate, Cooperative Speech Pattern: Appropriate Voice Loudness: Normal Thought Process: Intact, Goal Oriented Thought Disorder: Not Present Hallucinations: Denies Suicidal Ideation: Denies Homicidal Ideation: Denies Insight/Judgement: Poor Sleep: Fair Appetite: Fair Muscle strength/Tone: Normal Gait/Station: Normal Psychiatric Findings - Problem List ([place] 1, 2,3) (1) Alcohol use disorder Current Visit: Yes Status: Acute (2) Cocaine dependence Current Visit: Yes Status: Acute (3) Cannabis dependence Current Visit: Yes Status: Acute (4) Bipolar disorder Current Visit: Yes Status: Chronic (5) Schizoaffective disorder Current Visit: No Status: Suspected - Initial Treatment Plan Initial Treatment Plan: Psychoeducation provided. Detoxification in progress. Will order Risperdal 3mg HS + Depakote 500mg BID + Cogentin 1mg BID. Valproic acid level 6.4 on 04/23/19.Benefits and side effects discussed. Verbal consent given.
[2019-04-23] MEDS: VALPROATE SODIUM 250 MG/5 ML UNIT DOSE CUP PO SCH (21:30)
[2019-04-23] MEDS: BENZTROPINE MESYLATE 1 MG TABLET PO SCH (21:30)
[2019-04-23] MEDS: THIAMINE HCL 100 MG TABLET (FP) PO SCH (21:31)
[2019-04-23] MEDS: risperiDONE 3 MG TABLET PO SCH (21:31)
[2019-04-24] MEDS: PRENATAL VITAMINS W/ FOLIC ACID TABLET (FP) PO SCH (10:57)
[2019-04-24] MEDS: BENZTROPINE MESYLATE 1 MG TABLET PO SCH ×2 (10:57→21:34)
[2019-04-24] MEDS: VALPROATE SODIUM 250 MG/5 ML UNIT DOSE CUP PO SCH ×2 (10:57→21:34)
[2019-04-24] MEDS: THIAMINE HCL 100 MG TABLET (FP) PO SCH (21:34)
[2019-04-24] MEDS: risperiDONE 3 MG TABLET PO SCH (21:34)
[2019-04-25] MEDS: VALPROATE SODIUM 250 MG/5 ML UNIT DOSE CUP PO SCH (10:22)
[2019-04-25] MEDS: PRENATAL VITAMINS W/ FOLIC ACID TABLET (FP) PO SCH (10:22)
[2019-04-25] MEDS: BENZTROPINE MESYLATE 1 MG TABLET PO SCH ×2 (10:22→21:35)
[2019-04-25] MEDS: risperiDONE 3 MG TABLET PO SCH (21:35)
[2019-04-25] MEDS: DIVALPROEX SODIUM 500 MG TABLET E.C. PO SCH (21:36)
[2019-04-25] MEDS: THIAMINE HCL 100 MG TABLET (FP) PO SCH (21:36)
[2019-04-26] MEDS: BENZTROPINE MESYLATE 1 MG TABLET PO SCH ×2 (11:24→21:25)
[2019-04-26] MEDS: DIVALPROEX SODIUM 500 MG TABLET E.C. PO SCH ×2 (11:25→21:25)
[2019-04-26] MEDS: PRENATAL VITAMINS W/ FOLIC ACID TABLET (FP) PO SCH (11:25)
[2019-04-26] MEDS: THIAMINE HCL 100 MG TABLET (FP) PO SCH (21:24)
[2019-04-26] MEDS: risperiDONE 3 MG TABLET PO SCH (21:25)
[2019-04-26 23:45] LABS: PH,URINE 7.5 (5.0-8.0); URINE APPEARANCE CLEAR; URINE BILIRUBIN NEGATIVE (NEGATIVE); URINE COLOR YELLOW; URINE GLUCOSE (UA) NEGATIVE (NEGATIVE); URINE KETONE TRACE (NEGATIVE); URINE LEUK ESTERASE NEGATIVE (NEGATIVE); URINE NITRITE NEGATIVE (NEGATIVE); URINE PROTEIN NEGATIVE (NEGATIVE); URINE UROBILINOGEN 0.2 mg/dL (0.2-1.0)
[2019-04-27] MEDS: BENZTROPINE MESYLATE 1 MG TABLET PO SCH ×2 (10:36→21:19)
[2019-04-27] MEDS: PRENATAL VITAMINS W/ FOLIC ACID TABLET (FP) PO SCH (10:36)
[2019-04-27] MEDS: DIVALPROEX SODIUM 500 MG TABLET E.C. PO SCH ×2 (10:36→21:19)
[2019-04-27] MEDS: THIAMINE HCL 100 MG TABLET (FP) PO SCH (21:19)
[2019-04-27] MEDS: risperiDONE 3 MG TABLET PO SCH (21:19)
[2019-04-28] MEDS: DIVALPROEX SODIUM 500 MG TABLET E.C. PO SCH ×2 (09:53→21:40)
[2019-04-28] MEDS: BENZTROPINE MESYLATE 1 MG TABLET PO SCH ×2 (09:53→21:40)
[2019-04-28] MEDS: PRENATAL VITAMINS W/ FOLIC ACID TABLET (FP) PO SCH (09:53)
[2019-04-28] MEDS: THIAMINE HCL 100 MG TABLET (FP) PO SCH (21:40)
[2019-04-28] MEDS: risperiDONE 3 MG TABLET PO SCH (21:40)
[2019-04-29] MEDS: PRENATAL VITAMINS W/ FOLIC ACID TABLET (FP) PO SCH (11:18)
[2019-04-29] MEDS: BENZTROPINE MESYLATE 1 MG TABLET PO SCH ×2 (11:18→21:32)
[2019-04-29] MEDS: DIVALPROEX SODIUM 500 MG TABLET E.C. PO SCH ×2 (11:18→21:32)
[2019-04-29] MEDS: risperiDONE 3 MG TABLET PO SCH (21:32)
[2019-04-29] MEDS: THIAMINE HCL 100 MG TABLET (FP) PO SCH (21:32)
[2019-04-30 06:59] VITALS: BP 110/75; PULSE 76; TEMP 97.3
[2019-04-30] MEDS: PRENATAL VITAMINS W/ FOLIC ACID TABLET (FP) PO SCH (11:01)
[2019-04-30] MEDS: DIVALPROEX SODIUM 500 MG TABLET E.C. PO SCH ×2 (11:01→21:23)
[2019-04-30] MEDS: BENZTROPINE MESYLATE 1 MG TABLET PO SCH ×2 (11:01→21:23)
[2019-04-30] MEDS: risperiDONE 3 MG TABLET PO SCH (21:23)
[2019-04-30] MEDS: THIAMINE HCL 100 MG TABLET (FP) PO SCH (21:24)
[2019-05-01] MEDS: DIVALPROEX SODIUM 500 MG TABLET E.C. PO SCH ×2 (11:25→21:16)
[2019-05-01] MEDS: PRENATAL VITAMINS W/ FOLIC ACID TABLET (FP) PO SCH (11:25)
[2019-05-01] MEDS: BENZTROPINE MESYLATE 1 MG TABLET PO SCH ×2 (11:26→21:16)
[2019-05-01] MEDS ORDERED: NICOTINE POLACRILEX 2 MG GUM BUC PRN (12:58)
[2019-05-01] MEDS: risperiDONE 3 MG TABLET PO SCH (21:16)
[2019-05-01] MEDS: THIAMINE HCL 100 MG TABLET (FP) PO SCH (21:16)
[2019-05-02] MEDS: PRENATAL VITAMINS W/ FOLIC ACID TABLET (FP) PO SCH (10:31)
[2019-05-02] MEDS: BENZTROPINE MESYLATE 1 MG TABLET PO SCH ×2 (10:31→21:28)
[2019-05-02] MEDS: DIVALPROEX SODIUM 500 MG TABLET E.C. PO SCH ×2 (10:31→21:28)
[2019-05-02] MEDS: risperiDONE 3 MG TABLET PO SCH (21:28)
[2019-05-02] MEDS: THIAMINE HCL 100 MG TABLET (FP) PO SCH (21:29)
[2019-05-03] MEDS: PRENATAL VITAMINS W/ FOLIC ACID TABLET (FP) PO SCH (10:32)
[2019-05-03] MEDS: BENZTROPINE MESYLATE 1 MG TABLET PO SCH ×2 (10:32→21:39)
[2019-05-03] MEDS: DIVALPROEX SODIUM 500 MG TABLET E.C. PO SCH ×2 (10:32→21:39)
[2019-05-03] MEDS: risperiDONE 3 MG TABLET PO SCH (21:39)
[2019-05-03] MEDS: THIAMINE HCL 100 MG TABLET (FP) PO SCH (21:39)
[2019-05-04] MEDS: PRENATAL VITAMINS W/ FOLIC ACID TABLET (FP) PO SCH (11:55)
[2019-05-04] MEDS: BENZTROPINE MESYLATE 1 MG TABLET PO SCH ×2 (11:55→21:24)
[2019-05-04] MEDS: DIVALPROEX SODIUM 500 MG TABLET E.C. PO SCH ×2 (11:56→21:24)
[2019-05-04] MEDS: risperiDONE 3 MG TABLET PO SCH (21:24)
[2019-05-04] MEDS: THIAMINE HCL 100 MG TABLET (FP) PO SCH (21:24)
[2019-05-05] MEDS: DIVALPROEX SODIUM 500 MG TABLET E.C. PO SCH ×2 (10:52→21:36)
[2019-05-05] MEDS: PRENATAL VITAMINS W/ FOLIC ACID TABLET (FP) PO SCH (10:53)
[2019-05-05] MEDS: BENZTROPINE MESYLATE 1 MG TABLET PO SCH ×2 (10:53→21:36)
[2019-05-05] MEDS: risperiDONE 3 MG TABLET PO SCH (21:36)
[2019-05-05] MEDS: THIAMINE HCL 100 MG TABLET (FP) PO SCH (21:36)
[2019-05-06] MEDS: BENZTROPINE MESYLATE 1 MG TABLET PO SCH ×2 (10:21→21:23)
[2019-05-06] MEDS: PRENATAL VITAMINS W/ FOLIC ACID TABLET (FP) PO SCH (10:21)
[2019-05-06] MEDS: DIVALPROEX SODIUM 500 MG TABLET E.C. PO SCH ×2 (10:21→21:23)
[2019-05-06] MEDS: risperiDONE 3 MG TABLET PO SCH (21:23)
[2019-05-06] MEDS: THIAMINE HCL 100 MG TABLET (FP) PO SCH (21:23)
[2019-05-07] MEDS: PRENATAL VITAMINS W/ FOLIC ACID TABLET (FP) PO SCH (10:37)
[2019-05-07] MEDS: BENZTROPINE MESYLATE 1 MG TABLET PO SCH ×2 (10:37→21:30)
[2019-05-07] MEDS: DIVALPROEX SODIUM 500 MG TABLET E.C. PO SCH ×2 (10:37→21:30)
[2019-05-07] MEDS: risperiDONE 3 MG TABLET PO SCH (21:30)
[2019-05-07] MEDS: THIAMINE HCL 100 MG TABLET (FP) PO SCH (21:31)
[2019-05-08] MEDS: PRENATAL VITAMINS W/ FOLIC ACID TABLET (FP) PO SCH (10:56)
[2019-05-08] MEDS: BENZTROPINE MESYLATE 1 MG TABLET PO SCH (10:56)
[2019-05-08] MEDS: DIVALPROEX SODIUM 500 MG TABLET E.C. PO SCH (10:56)
--- NOTE | 2019-05-08 14:49 | DS ---
[facility] Rehab Discharge Summary - [facility] Rehab Discharge Summary Admission Date: 04/20/19 Discharge Date: 05/08/19 - History Present History: Alcohol dependence, Cannabis dependence, Cocaine dependence Additional Comments: Pt is a 29 y/o male with a hx of CODY admitted to rehab and requests early discharge today to follow up with housing stating "I'm homeless and have to go and arrange for housing in the correction". Pt met with his medical social worker and has been referred to follow up with CD aftercare at [place], [place]. Pertinent Past History: Bipolar Disorder Schizoaffective disorder - Discharge Physical Exam Vital Signs: Vital Signs Temperature 97.3 F L 04/30/19 06:58 Pulse Rate 76 04/30/19 06:58 Respiratory Rate 18 05/08/19 06:55 Blood Pressure 110/75 04/30/19 06:58 O2 Sat by Pulse Oximetry (%) Alert o x 3,denies s/h/i nad oob ambulating with steady gait. cardiac:s1 s2,rrr lungs;cta,rm. abdomen;+bs,soft,nt,nd extremities/skin:no edema;skin intact. Pertinent Admission Physical Exam Findings: Laboratory Tests 04/21/19 04/21/19 04/21/19 07:30 07:30 07:30 WBC 4.2 RBC 4.39 Hgb 13.1 Hct 37.9 MCV 86.2 MCH 29.8 MCHC 34.5 RDW 13.9 Plt Count 225 MPV 9.0 Sodium 142 Potassium 4.1 Chloride 110 H Carbon Dioxide 27 Anion Gap 5 L BUN 11.8 Creatinine 0.9 Est GFR (CKD-EPI)AfAm 132.37 Est GFR (CKD-EPI)NonAf 114.21 Random Glucose 81 Calcium 8.8 Total Bilirubin 0.5 AST 13 L ALT 16 Alkaline Phosphatase 60 Total Protein 6.8 Albumin 3.7 Urine Color Urine Appearance Urine pH Ur Specific [place] Urine Protein Urine Glucose (UA) Urine Ketones Urine Blood Urine Nitrite Urine Bilirubin Urine Urobilinogen Ur Leukocyte Esterase Valproic Acid 6.4 L RPR Titer 04/21/19 04/26/19 07:30 16:34 WBC RBC Hgb Hct MCV MCH MCHC RDW Plt Count MPV Sodium Potassium Chloride Carbon Dioxide Anion Gap BUN Creatinine Est GFR (CKD-EPI)AfAm Est GFR (CKD-EPI)NonAf Random Glucose Calcium Total Bilirubin AST ALT Alkaline Phosphatase Total Protein Albumin Urine Color Yellow Urine Appearance Clear Urine pH 7.5 D Ur Specific [place] 1.023 Urine Protein Negative Urine Glucose (UA) Negative Urine Ketones Trace H Urine Blood Negative Urine Nitrite Negative Urine Bilirubin Negative Urine Urobilinogen 0.2 Ur Leukocyte Esterase Negative Valproic Acid RPR Titer Nonreactive - Treatment Discharge Condition: Discharge condition good Hospital Course: CD aftercare accepted Rehabilitated safely and responded well. Mood and self control improved from admission presentation participated in groups/individual sessions. - Medication Discharge Medications: Ambulatory Orders Valproic Acid 500 mg PO BID 04/20/19 Benztropine Mesylate 1 mg PO BID #30 tablet 05/08/19 Divalproex [Depakote -] 500 mg PO BID #60 tablet.ec 05/08/19 Risperidone [Risperdal] 3 mg PO HS #30 tablet 05/08/19 - Medication-Assisted Treatment (MAT) Medication-Assisted Treatment (MAT): No - Discharge Instructions Diet, activity, other medical instructions: Diet:Regular Activity: oob ad vesna Other medical instructions:follow up with CD aftercare recommendation as scheduled at [facility].. Follow up with primary care wit [facility] [place], [place] within 1 -2 weeks after discharge and as needed. - Diagnosis (1) Alcohol dependence Current Visit: Yes Status: Chronic Qualifiers: Substance use status: uncomplicated Qualified Code(s): F10.20 - Alcohol dependence, uncomplicated (2) Cocaine dependence, uncomplicated Current Visit: Yes Status: Chronic (3) Cannabis dependence, uncomplicated Current Visit: Yes Status: Chronic (4) Nicotine dependence Current Visit: Yes Status: Acute Qualifiers: Nicotine product type: cigarettes Substance use status: uncomplicated Qualified Code(s): F17.210 - Nicotine dependence, cigarettes, uncomplicated - Follow-up Referral Minutes to complete discharge: 25 - AMA Did Patient Leave Against Medical Advice: No
--- NOTE | 2019-05-08 14:58 | PN ---
[facility] Progress Note Note: Patient is discharged today. Scripts for 30 days supply of medications( Risperdal 3 mg/hs, Depakote 500 mg/bid, Cogentin 1 mg/bid) are electronically transmitted to [address] [place] at [address] [place] [address]
== END 2019-05-08 15:20 | disposition home or self-care (01) | DRG 895 ==
LOC: YASAS 14:00 → Y5N 20:14
PROVIDERS: ADMIT Allergy & Immunology; ATTEND Allergy & Immunology
PROC: HZ42ZZZ Group Counseling for Substance Abuse Treatment, Cognitive-Behavioral (ICD-10-PCS; principal; 2019-04-20)
DX: F10.20 Alcohol dependence, uncomplicated (principal); F14.20 Cocaine dependence, uncomplicated; F12.20 Cannabis dependence, uncomplicated; F17.210 Nicotine dependence, cigarettes, uncomplicated; F25.9 Schizoaffective disorder, unspecified; R00.1 Bradycardia, unspecified; Z91.013 Allergy to seafood; Z56.0 Unemployment, unspecified
CPT/HCPCS: 36415; 80053; 80164; 81003; 85027; 86593; 93005; 93010